=== PATIENT | female | born 2000 | race African-American/Black ===

== ENCOUNTER 2020-01-12 03:56 | Emergency (ER) | payer MEDICAID ==
[~2020-01-12] VITALS: Ht 154.9 cm; Wt 74.9 kg
[2020-01-12 05:27] VITALS: BP 120/73
== END 2020-01-12 06:23 | disposition home or self-care (01) ==
LOC: ER 03:59
DX: O99.321 Drug use complicating pregnancy, first trimester (principal); T50.905A Adverse effect of unspecified drugs, medicaments and biological substances, initial encounter; Z3A.01 Less than 8 weeks gestation of pregnancy; Y92.89 Other specified places as the place of occurrence of the external cause

== ENCOUNTER 2022-10-04 13:12 | Emergency (ER) | payer MEDICAID ==
[~2022-10-04] VITALS: Ht 154.9 cm; Wt 97.5 kg
[2022-10-04 14:06] VITALS: BP 112/54
[2022-10-04] MEDS ORDERED: HYDROcodone-ACET 5/325MG TAB PO ONE (14:45)
[2022-10-04] MEDS ORDERED: IBUP800T27 PO (15:48)
== END 2022-10-04 16:01 | disposition home or self-care (01) ==
LOC: ER 13:12
DX: S96.912A Strain of unspecified muscle and tendon at ankle and foot level, left foot, initial encounter (principal); S63.636A Sprain of interphalangeal joint of right little finger, initial encounter; X50.1XXA Overexertion from prolonged static or awkward postures, initial encounter; Y93.01 Activity, walking, marching and hiking; Y92.89 Other specified places as the place of occurrence of the external cause; Y99.8 Other external cause status
CPT/HCPCS: 73130; 73610; 73630